=== PATIENT | female | born 1945 | race Caucasian/White ===

== ENCOUNTER 2024-09-01 02:22 | Emergency (ER) | payer MEDICARE, BC, SELFPAY ==
[2024-09-01 02:24] VITALS: BMI 21.0
[2024-09-01 02:33] VITALS: BP 132/77; PULSE 110; RESP 20; TEMP 37.2; O2SAT 97
--- NOTE | 2024-09-01 02:36 | XR_ITS ---
Examination: AP chest single view TECHNIQUE: AP portable upright chest single view Exam date and time: September 01, 2024 at 0243 hours COMPARISON: December 20, 2021 INDICATIONS: Rib pain today. FINDINGS: Bilateral subsegmental atelectasis. Normal heart size. No lobar pneumonia or pulmonary edema. Moderate osteopenia IMPRESSION: Bilateral subsegmental atelectasis. Ribs appear intact
--- NOTE | 2024-09-01 02:37 | PD.EDRME ---
Rapid Medical Screening Exam RME Arrival date/time: 09/01/24 02:22 79 year old female present to ED for c/o of upper chest wall pain worsen tonight I have greeted and performed a focused initial assessment of this patient. A comprehensive ED assessment and evaluation of the patient, analysis of all test results, and completion of the medical decision making process will be conducted by additional ED providers. Chief Complaint: Trauma Vital signs: Vital Signs Temperature 98.9 F 09/01/24 02:33 Pulse Rate 110 H 09/01/24 02:33 Respiratory Rate 20 09/01/24 02:33 Blood Pressure 132/77 H 09/01/24 02:33 Pulse Oximetry (%) 97 09/01/24 02:33 Oxygen Delivery Method Room Air 09/01/24 02:33
[2024-09-01] MEDS: LIDOCAINE 5% 1 PATCH TOP (03:09)
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
[2024-09-01 05:56] VITALS: BP 138/83; PULSE 83; RESP 17; TEMP 36.5; O2SAT 96
[2024-09-01] MEDS: HYDROcodone/APAP 5/325 TABLET 1 TAB PO (08:31)
[2024-09-01] MEDS: CYCLObenzaPRINE 5 MG TABLET PO (08:31)
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
== END 2024-09-01 08:49 | disposition home or self-care (01) ==
PROVIDERS: Emergency Provider Emergency Medicine; PCP Physician Assistant Medical
DX: S22.42XA Multiple fractures of ribs, left side, initial encounter for closed fracture (principal); W55.12XA Struck by horse, initial encounter; J98.11 Atelectasis
CPT/HCPCS: 71046; 71250; 74176; 99284; J3490; A9270